=== PATIENT | female | born 1950 | race Caucasian/White ===

== ENCOUNTER 2016-09-18 08:16 | Emergency (ER) | payer MEDICARE, OTHER ==
[2016-09-18 08:42] LABS: APPEARANCE,URINE Clear; BILIRUBIN,URINE NEGATIVE (NEGATIVE); COLOR,URINE Yellow; GLUCOSE, URINE (UA) NEGATIVE (NEGATIVE); KETONES,URINE NEGATIVE (NEGATIVE); LEUKOCYTE ESTERASE ,URINE NEGATIVE (NEGATIVE); NITRATE,URINE POSITIVE (NEGATIVE); OCCULT BLOOD,URINE TRACE INTACT (NEG-TRACE); PH,URINE 6.5; UROBILINOGEN,URINE 0.2 (0.2-1.0 EU)
[2016-09-18] MEDS ORDERED: ACETAMINOPHEN 500 MG 500 MG TAB PO ONE (08:43)
[2016-09-18] MEDS ORDERED: ACETAMINOPHEN 500 MG 500 MG TAB ONE (08:45)
[2016-09-18 08:53] LABS: WBC,URINE 0-2 (0-5AV/HPF)
[2016-09-18] MEDS ORDERED: OSELTAMIVIR PHOSPHATE 75 MG CAP PO ONE ×2 (08:55→08:56)
[2016-09-18 09:05] VITALS: O2SAT 100
[2016-09-18 09:15] VITALS: TEMP 102
[2016-09-18 10:02] VITALS: BP 125/70; PULSE 85; RESP 20
== END 2016-09-18 09:43 | disposition home or self-care (01) | DRG 195 ==
LOC: ED 08:16
DX: J09.X2 Influenza due to identified novel influenza A virus with other respiratory manifestations (principal)
CPT/HCPCS: 81001; 87804; 99283

== ENCOUNTER 2016-09-19 09:17 | Inpatient (IN) | payer MEDICARE, OTHER ==
[2016-09-19] MEDS ORDERED: SODIUM CHLORIDE 0.9% FLUSH 10 ML SOL IV PRN (09:52)
[2016-09-19 09:55] LABS: HEMATOCRIT 37 % (35-47); MEAN CORPUSCULAR HGB CONC 34.8 gm/dl (32.0-36.0); MEAN CORPUSCULAR VOLUME 90 fL (81-99)
[2016-09-19] MEDS: SODIUM CHLORIDE 0.9% 1000ML 1,000 ML IV SCH ×3 (10:02→14:38)
[2016-09-19] MEDS ORDERED: APAP/CODEINE 300/30 TAB PO ONE (10:06)
[2016-09-19 10:12] LABS: ALBUMIN 3.4 gm/dl (3.4-5.0); CALCIUM 8.4 mg/dl (8.5-10.1); POTASSIUM 3.8 mMol/L (3.5-5.1)
[2016-09-19] MEDS ORDERED: APAP/CODEINE 300/30 TAB ONE (10:14)
[2016-09-19 10:21] LABS: BASOPHILS % (MANUAL) 0 % (0-3); EOSINOPHILS % (MANUAL) 0 % (0-9); LYMPHOCYTES % (MANUAL) 24 % (10-50); NORMAL RBCS PRESENT
[2016-09-19] MEDS ORDERED: APAP/CODEINE 300/30 TAB PO PRN (12:20)
[2016-09-19] MEDS ORDERED: IBUPROFEN 400 MG TAB PO PRN (12:20)
[2016-09-19] MEDS: ENOXAPARIN 40 MG SOL SC SCH (13:24)
[2016-09-19] MEDS: [UNRECOGNIZED DRUG - OTHER] PO SCH ×2 (14:37→21:33)
[2016-09-19] MEDS: PROTEASE PO SCH ×2 (14:37→21:33)
[2016-09-19] MEDS: AMYLASE PO SCH ×2 (14:37→21:33)
[2016-09-19] MEDS: LIPASE PO SCH ×2 (14:37→21:33)
[2016-09-19] MEDS: OSELTAMIVIR PHOSPHATE 75 MG CAP PO SCH (21:34)
[2016-09-19] MEDS: [UNRECOGNIZED DRUG - OTHER] EACHEYE SCH (21:35)
[2016-09-20 08:35] VITALS: BP 114/73; PULSE 72; RESP 19; TEMP 98.5
[2016-09-20] MEDS: [UNRECOGNIZED DRUG - OTHER] PO SCH (08:56)
[2016-09-20] MEDS: OSELTAMIVIR PHOSPHATE 75 MG CAP PO SCH (08:56)
[2016-09-20] MEDS: LIPASE PO SCH (08:56)
[2016-09-20] MEDS: AMYLASE PO SCH (08:56)
[2016-09-20] MEDS: PROTEASE PO SCH (08:56)
[2016-09-20] MEDS: ENOXAPARIN 40 MG SOL SC SCH (08:57)
[2016-09-20] MEDS: [UNRECOGNIZED DRUG - OTHER] EACHEYE SCH (08:57)
[2016-09-20] MEDS ORDERED: NICOTINE 21 MG PATCH TD SCH (09:00)
[2016-09-20] MEDS ORDERED: VENLAFAXINE HYDROCHLORIDE 75 MG CER PO SCH (09:00)
[2016-09-20] MEDS ORDERED: ATORVASTATIN 10 MG TAB PO SCH (09:00)
[2016-09-20] MEDS ORDERED: ASPIRIN 81 MG CHEWABLE CTB PO SCH (09:00)
[2016-09-20] MEDS ORDERED: PANTOPRAZOLE SODIUM 40 MG ECT PO SCH (09:00)
[2016-09-20 13:02] VITALS: O2SAT 97
== END 2016-09-20 12:55 | disposition home or self-care (01) | DRG 153 ==
LOC: ED 09:17 → UNDOADMIN 10:54 → ACUTE CARE 10:54
PROVIDERS: ADMIT Family Medicine; ATTEND Family Medicine
DX: J11.1 Influenza due to unidentified influenza virus with other respiratory manifestations (principal); K86.81 Exocrine pancreatic insufficiency; E78.5 Hyperlipidemia, unspecified; Z72.0 Tobacco use; F34.1 Dysthymic disorder
CPT/HCPCS: 36415; 71010; 80053; 85007; 85027; 87077; 87088; 87186; 96365; 99284; J1650